=== PATIENT | female | born 1960 | race Caucasian/White ===

== ENCOUNTER 2018-08-16 12:19 | Emergency (ER) | payer OTHER ==
[2018-08-16 12:35] VITALS: BP 140/90
--- NOTE | 2018-08-16 13:31 | ED Physician Documentation ---
PD HPI LOWER EXT INJURY - Stated complaint Stated Complaint: R LEG INJ - Chief complaint Chief Complaint: Trauma Ext - History obtained from History obtained from: Patient - History of Present Illness PD HPI LOW EXT INJURY LOCATION: Right, Ankle Type of injury: Fall Where injury occurred: Home Timing - onset: How many days ago (4) Timing - duration: Days (4) Pain level max: 5 Pain level now: 5 Improved by: Nothing Worsened by: Moving Associated symptoms: Swelling. No: Weakness, Numbness, Tingling Contributing factors: No: Anticoagulated, Prior ortho surgery Similar symptoms before: Diagnosis, Work up / diagnostics, Treatment, Follow up Recently seen: Emergency Dept - Additional information Additional information: 58-year-old female with no past medical or surgical history had an accidental fall at home 4 days ago resulting to a right bimalleolar fracture. Patient was seen at [facility] emergency room and was put on a splint and crutches. Stated the orthopedic doctor appointment is not until next week or10 days from now. Patient is here in the emergency room because she is complaining of discomfort from the splint that was put in place for her. She stated it'S poking the back part of her knee and it feels very tight on her leg causing more ankle pain. Review of Systems Ten Systems: 10 systems reviewed and negative Constitutional: denies: Fever, Myalgias Musculoskeletal: reports: Extremity pain, Extremity swelling. denies: Back pain, Joint pain Neurologic: denies: Generalized weakness, Focal weakness, Numbness PD PAST MEDICAL HISTORY - Present Medications Home Medications: Ambulatory Orders Medication Instructions Recorded Confirmed Fluoxetine HCl [Prozac] 08/16/18 Hydrocodone/Acetaminophen [Trinity 08/16/18 5-325 Tablet] Ibuprofen 08/16/18 Ibuprofen [Motrin] 800 mg PO Q8H PRN #30 tablet 08/16/18 Ondansetron Odt [Zofran Odt] 08/16/18 hydrOXYzine HCl [Hydroxyzine HCl] 08/16/18 - Allergies Allergies/Adverse Reactions: Allergies Allergy/AdvReac Type Severity Reaction Status Date / Time fentanyl Allergy Anaphylaxis Verified 08/16/18 12:35 midazolam [From Versed] Allergy Anaphylaxis Verified 08/16/18 12:35 Sulfa (Sulfonamide Allergy Anaphylaxis Verified 08/16/18 12:35 Antibiotics) PD ED PE NORMAL - General General: Alert and oriented X 3, No acute distress, Well developed/nourished - HEENT HEENT: Moist mucous membranes - Cardiac Cardiac: RRR, Strong equal pulses - Respiratory Respiratory: No respiratory distress - Derm Derm: Warm and dry, No rash - Extremities Extremities: No deformity, No calf tenderness / cord, Other (Right leg stirrups fiberglass splint pushing on patient's ankle And popliteal areaand Sky wrap was tight.I removed the splint and Sky wrap and patient felt better. Right foot with ecchymosis and nonpitting 1+ edema. No obvious deformity. Capillary refill less than 2 seconds. Temperature normal. Sensation in intact. Pulses +2. Patient able to wiggle her toes without difficulty.Patient is able to bend her knee without difficulty.) Results - Vitals Vitals: Vital Signs - 24 hr 08/16/18 12:31 Temperature 36.5 C Heart Rate 78 Respiratory 16 Rate Blood Pressure 140/90 H O2 Saturation 98 Oxygen O2 Source Room air PD MEDICAL DECISION MAKING - ED course Complexity details: re-evaluated patient, considered differential (Bimalleolar fracture history, tight splint Requiring re-splinting.), d/w patient, d/w family ED course: 1410 patient feels a little bit better with a change of splint for her right leg. Posterior splint With stirrups check: Patient able to move toes, sensation intact, temperature normal, capillary refill less than 2 seconds, pulses +2. Patient wants prescription for Motrin 800 mg. Departure - Departure Disposition: 01 Home, Self Care Clinical Impression: Aftercare for cast or splint check or change Condition: Good Instructions: ED Splint Care Plaster Prescriptions: Ibuprofen [Motrin] 800 mg PO Q8H PRN #30 tablet PRN Reason: PAIN &/OR FEVER Comments: Keep the splint on. Elevate. Use your crutches. No weightbearing. Take the M otrin as prescribed. Keep your orthopedic appointment as scheduled next week. If worse return to the emergency room.
[2018-08-16] MEDS ORDERED: IBUPROFEN 800 MG TABLET PO STA (14:14)
== END 2018-08-16 14:20 | disposition home or self-care (01) ==
LOC: ED 12:19
DX: S82.841D Displaced bimalleolar fracture of right lower leg, subsequent encounter for closed fracture with routine healing (principal); X58.XXXD Exposure to other specified factors, subsequent encounter
CPT/HCPCS: 99283; A9270